=== PATIENT | male | born 1980 | race Caucasian/White ===

== ENCOUNTER → 2016-09-28 | Outpatient (CLI) | payer BC ==
--- NOTE | 2016-09-28 08:56 | RAD ---
PROCEDURE MRI of the brain without contrast 09/28/2016 HISTORY Left-sided weakness for 5 days. TECHNIQUE Unenhanced T1 weighted sagittal and axial, T2 weighted axial and coronal and FLAIR, gradient echo and diffusion weighted axial images of the brain were obtained. FINDINGS No previous imaging studies are available for comparison. 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 The ventricles are within normal limits in size and configuration. A wedge-shaped area of restricted diffusion is seen involving portions of the posterior right temporal lobe extending superiorly to involve the right parietal lobe. This is consistent with an area of acute ischemia/infarction. This measures 6.9 x 4.1 x 4.0 centimeters in AP, craniocaudal and transverse dimensions. There is mild surrounding edema and mass effect without evidence of midline shift. There is no MRI evidence intraparenchymal hemorrhage. No additional acute parenchymal abnormality is seen. No extra-axial fluid collection is noted. Mild mucosal thickening is seen scattered throughout the paranasal sinuses. Normal flow voids are seen within the major vascular structures surrounding the brain parenchyma. IMPRESSION Area of acute ischemia/infarction is seen involving the right posterior temporal/parietal lobe as outlined above. There is mild surrounding edema and associated mass effect without evidence of midline shift. These findings were discussed with TARA Crawford. Electronically signed by: Sony Han MD (September 28, 2016 08:54:44)
== END | disposition home or self-care (01) ==
LOC: MRI 07:51
PROVIDERS: ATTEND Physician Assistant Medical
DX: R20.2 Paresthesia of skin (principal)
CPT/HCPCS: 70551

== ENCOUNTER → 2016-11-09 | Outpatient (CLI) | payer BC, OTHER ==
--- NOTE | 2016-11-10 09:43 | CARD ---
APPROVED REPORT EXAM: Two-dimensional and M-mode echocardiogram with Doppler and color Doppler. Other Information Quality : Average Rhythm : NSR INDICATION CVA/TIA Echo Enhancing Agent Indication: Rule Out Septal Defect Agent/Amount Used: Agitated Saline 8mL 2D DIMENSIONS RVDd3.8 (2.9-3.5cm)Left Atrium(2D)4.7 (1.6-4.0cm) IVSd1.1 (0.7-1.1cm)Aortic Root(2D)3.2 (2.0-3.7cm) LVDd5.5 (3.9-5.9cm)LVOT Diameter2.4 (1.8-2.4cm) PWd1.1 (0.7-1.1cm)LVDs3.4 (2.5-4.0cm) FS (%) 25.1 %SV96.7 ml LVEF(%)54.5 (>50%) Aortic Valve AoV Peak Jason.118.7cm/sAoV VTI22.6cm AO Peak GR.5.6mmHgLVOT Peak Jason.101.0cm/s LVOT VTI 18.43cmAO Mean GR.3mmHg KINGSLEY (VMAX)3.20kk9BKJ (VTI)3.56cm2 Mitral Valve MV E Jphosalq15.7cm/sMV DECEL KTJD250sj MV A Zhidavtt32.2cm/sMV GRG15ay E/A Ratio2.0MV A Lvzcoubh94ql MVA (PHT)5.02cm2 TDI E/Lateral E'3.5E/Medial E'4.8 Pulmonary Valve PV Peak Bfxudmqj513.3cm/sPV Peak Grad.6mmHg RVOT VTI25.1cm Tricuspid Valve TR P. Fjrinepx844jt/sRAP AUXUVJOK2bxZb TR Peak Gr.58ccKdEFSE09lsBz Pulmonary Vein S1 Yzxiaxqz49.6cm/sD2 Laorrbax28.2cm/s LEFT VENTRICLE The left ventricle is normal size. There is normal left ventricular wall thickness. Left ventricle sy stolic function is normal. The Ejection Fraction is 50-55%. There is normal LV segmental wall motion. The left ventricular diastolic function and filling is normal for age. There is no ventricular septa l defect visualized. RIGHT VENTRICLE The right ventricle is borderline dilated. The right ventricular systolic function is normal. ATRIA The left atrium is mildly dilated. The right atrium size is normal. Injection of bubbles documented a n interatrial shunt. There is a mild to moderate probable secundum type atrial septal defect. AORTIC VALVE The aortic valve is normal in structure and function. The aortic valve is trileaflet. Doppler and Col or Flow revealed no significant aortic regurgitation. There is no significant aortic valvular stenosi s. MITRAL VALVE The mitral valve leaflets are thickened. There is no evidence of mitral valve prolapse. There is no m itral valve stenosis. Doppler and Color Flow revealed trace mitral regurgitation. TRICUSPID VALVE The tricuspid valve is normal in structure and function. Doppler and Color Flow revealed trace tricus pid regurgitation. The PA pressure was estimated at 23 mmHg. There is no tricuspid valve stenosis. PULMONIC VALVE The pulmonic valve is not well visualized. Doppler and Color Flow revealed trivial pulmonic valvular regurgitation. There is no pulmonic valvular stenosis. GREAT VESSELS The aortic root is normal in size. The ascending aorta is normal in size. The IVC is normal in size a nd collapses >50% with inspiration. PERICARDIAL EFFUSION There is no evidence of significant pericardial effusion. Critical Notification Critical Value: No <Conclusion> The left ventricle is normal size. Left ventricle systolic function is normal. The Ejection Fraction is 50-55%. Injection of bubbles documented an interatrial shunt. There is a mild to moderate probable secundum type atrial septal defect. There is no significant aortic valvular stenosis. Doppler and Color Flow revealed no significant aortic regurgitation. Doppler and Color Flow revealed trace mitral regurgitation. Doppler and Color Flow revealed trace tricuspid regurgitation. The PA pressure was estimated at 23 mmHg.
== END | disposition home or self-care (01) ==
LOC: ECHO 08:51
PROVIDERS: ATTEND Psychiatry & Neurology Neurology with Special Qualifications in Child Neurology
DX: I63.511 Cerebral infarction due to unspecified occlusion or stenosis of right middle cerebral artery (principal); I08.1 Rheumatic disorders of both mitral and tricuspid valves
CPT/HCPCS: C8929

== ENCOUNTER → 2017-04-19 | Outpatient (CLI) | payer OTHER ==
--- NOTE | 2017-04-19 09:37 | KCIC ---
MRI of the brain without contrast 04/19/2017 Clinical History: Dizziness with intermittent confusion for 3 weeks. History of CVA 5 months ago. Technique: Unenhanced T1-weighted sagittal and axial, T2-weighted axial and coronal and FLAIR, gradient echo and diffusion-weighted axial images of the brain were obtained. Findings: Comparison study is dated 09/28/2016. The ventricles are within normal limits in size and configuration. An area of encephalomalacia is seen involving the right parietal lobe which corresponds to the area of infarction seen on the patient's previous MRI examination. This area measures 4.4 cm in size. Patchy and several small scattered areas of increased signal intensity are seen within the periventricular and subcortical white matter of both cerebral hemispheres on the FLAIR and T2-weighted images consistent most likely with areas of very mild small vessel ischemic disease. These have not significantly changed. A 8 mm old area of infarction is seen involving the right cerebellar hemisphere, unchanged. No acute parenchymal abnormality is seen. No extra-axial fluid collection is noted. There is no MRI evidence of acute ischemia/infarction. Mild mucosal thickening in seen scattered throughout the paranasal sinuses. Normal flow voids are seen within the major vascular structures surrounding the brain parenchyma. IMPRESSION: No acute parenchymal abnormality is seen. Electronically signed by: Sony Han MD (04/19/2017 9:33 AM) [id number]
== END | disposition home or self-care (01) ==
LOC: KCIC MRI 07:44
PROVIDERS: ATTEND Physician Assistant Medical
DX: G93.89 Other specified disorders of brain (principal); R42 Dizziness and giddiness; R41.0 Disorientation, unspecified; Z86.73 Personal history of transient ischemic attack (TIA), and cerebral infarction without residual deficits
CPT/HCPCS: 70551